=== PATIENT | female | born 1980 | race Caucasian/White ===

== ENCOUNTER → 2017-08-03 | Outpatient (CLI) | payer OTHER ==
[~2017-08-03] MED LIST: ONDA4TAB7 PO; PREN1TAB60 PO
== END | disposition home or self-care (01) ==
LOC: CARD 12:40
PROVIDERS: ATTEND Specialist
DX: R55 Syncope and collapse (principal)
CPT/HCPCS: 95816

== ENCOUNTER → 2017-09-06 | Outpatient (CLI) | payer OTHER | END | disposition home or self-care (01) | LOC: CFH 13:32 | PROVIDERS: ATTEND Internal Medicine Cardiovascular Disease | DX: R55 Syncope and collapse (principal); R06.02 Shortness of breath | CPT/HCPCS: 93306 ==

== ENCOUNTER 2018-01-07 20:45 | Emergency (ER) | payer OTHER ==
[~2018-01-07] VITALS: Ht 157.5 cm; Wt 65.6 kg
[2018-01-07 20:48] VITALS: BP 155/85
[2018-01-07] MEDS ORDERED: ONDANSETRON ODT 4 MG ONE (21:06)
[2018-01-07] MEDS ORDERED: OXYcodone 5 MG/5 ML ORAL.SOL UDC ONE (21:06)
[2018-01-07] MEDS ORDERED: SILVER SULF. CRM 1% , 25GM ONE (21:11)
[2018-01-07] MEDS ORDERED: ONDANSETRON ODT 4 MG PO ONE (21:30)
[2018-01-07] MEDS ORDERED: OXYcodone 5 MG/5 ML ORAL.SOL UDC PO ONE (21:30)
[2018-01-07] MEDS ORDERED: SILVER SULF. CRM 1%, 400GM TP ONE (21:30)
== END 2018-01-07 21:43 | disposition home or self-care (01) ==
LOC: ED 21:00
DX: T23.201A Burn of second degree of right hand, unspecified site, initial encounter (principal); T31.0 Burns involving less than 10% of body surface; X15.2XXA Contact with hotplate, initial encounter; Y93.89 Activity, other specified; Y92.009 Unspecified place in unspecified non-institutional (private) residence as the place of occurrence of the external cause; Y99.8 Other external cause status
CPT/HCPCS: 16020; 99284; Q0162

== ENCOUNTER → 2018-03-01 | Outpatient (CLI) | payer OTHER | END | disposition home or self-care (01) | LOC: CFH 13:55 | PROVIDERS: ATTEND Obstetrics & Gynecology | DX: N63.12 Unspecified lump in the right breast, upper inner quadrant (principal); D24.2 Benign neoplasm of left breast | CPT/HCPCS: 76642; 77066; G0279 ==